=== PATIENT | male | born 1965 | race Caucasian/White ===

== ENCOUNTER 2025-01-03 06:29 | Emergency (ER) | payer OTHER, SELFPAY ==
[2025-01-03 06:32] VITALS: BP 155/81
--- NOTE | 2025-01-03 07:17 | ED.GENMED ---
History of Present Illness
General
Chief Complaint: Dizziness
Source: patient
Exam Limitations: none
Time Seen by Provider: 01/03/25 07:05
History of Present Illness
History of Present Illness:
59yoM with no significant past medical history presenting for evaluation of dizziness. Symptoms initially began last night around 11 PM. He was sitting on the couch and he stood up and started to feel dizzy. He thought he may have stood up too
quickly. He describes the dizziness as feeling like the room is spinning. He went to bed and woke up again with the symptoms. Symptoms have been intermittent throughout the morning and worsened while in the shower. His symptoms are currently
mild. He has been sick for about a week with nasal congestion and cough. He also reports some left discomfort which he believes is related to reflux. Symptoms have been intermittent for at least several weeks and tend to occur while he is lifting
his left arm while at work (patient works as a weapons mechanic). He denies any headache, visual changes, weakness, ear pain, tinnitus, hearing loss.
Past History
Past History
ED Past Medical History: GERD and Other (Kidney stones)
ED Past Surgical History: Orthopedic (Dr. Ibanez-arthroscopic surgery unsure which knee) and Urological (Right renal stent)
Social History
Tobacco: Former smoker (Quit approximately 15 years ago.)
Alcohol: None
Personal: Single
Living: with family
Employment: Employed (works in [employer]
Family History
Family History: Other (Noncontributory)
Phy Exam
General Physical Exam
General Presentation: well appearing and no apparent distress
General Skin: warm and dry
General Habitus: normal
General Mental: alert
ENT Exam
ENT Exam: TM's normal and normocephalic
Additional ENT: +Nasal congestion
Eye Exam
Eye Exam: PERRL, EOMI and conjunctiva normal
Cardiovascular Exam
Cardiovascular Exam: regular rate/rhythm
Pulmonary Exam
Pulmonary Exam: lungs clear, no respiratory distress, no rales, no crackles, no rhonchi and no wheezing
Neurological Exam
Neurological Exam: alert, speech normal and other (Normal finger to nose and heel to kulkarni bilaterally. Ambulating with steady gait. )
Esvin Coma Scale
Eye Opening: Spontaneous
Verbal Response: Oriented
Motor Response: Obeys Commands
GCS Total Score: 15
Skin Exam
Skin Exam: normal color and warm/dry
Psychiatric Exam
Psychiatric Exam: normal mood/affect
Course
Orders/Labs/Results
Orders:
Orders
01/03/25 07:17
Electrocardiogram (*1) Urgent
Reason for Study: Vertigo / Dizzy
CT Head W/o Iv Contrast Urgent
Comment:
Reason For Exam: dizziness
Cardiac Monitoring- Treatment ONCE
EKG- Treatment ONCE
01/03/25 07:48
Pt Eval And Treat Urgent
Treatment: vestibular eval
Activity Level: Out of Bed- Ad Ann-Marie
01/03/25 07:56
COVID-19 Antigen Urgent
Source: Nasal Swab
Complete Blood Count/With Diff Urgent
Comprehensive Metabolic Panel Urgent
Troponin I Urgent
Influenza A+B Rapid Molecular Urgent
[facility] Source: Nasal Swab
Specimen Description:
Abnormal Lab Results
01/03/25
07:56
Absolute Monos (auto) 0.7 H 10^3/uL
(0.1-0.6)
Lymphocytes % 18.0 L %
(20.5-51.1)
BUN 21 H mg/dl
(9-20)
Glucose 138 H mg/dl
(70-99)
01/03/25 07:56
01/03/25 07:56
Vital Signs
Initial and Last Documented VS:
Initial Vital Signs
Temp Pulse Resp BP Pulse Ox
97.9 F 76 16 155/81 96
01/03/25 06:32 01/03/25 06:32 01/03/25 06:32 01/03/25 06:32 01/03/25 06:32
Last Documented Vital Signs
Temp Pulse Resp BP Pulse Ox
97.9 F 68 12 119/80 95
01/03/25 06:32 01/03/25 09:15 01/03/25 09:15 01/03/25 09:09 01/03/25 09:09
MDM/Problems Addressed
Differential Diagnosis Includes:
59yoM here with dizziness. Started last night and intermittent since then. Described as room spinning. Has been sick with URI symptoms x 1 week. Symptoms mild on initial assessment. He was able to ambulate independently into exam room. He is well
appearing in no distress. No nystagmus or ataxia noted on exam. Differential diagnosis includes: BPPV, vestibular neuritis, sinusitis, doubt CVA
Initial ED plan: Check cardiac labs, EKG, viral testing, and CT head. Will consult PT for vestibular evaluation.
*Pulse Oximetry
SaO2: 96
Patient hypoxic: no
*EKG
Interpreted by ED Provider?: Yes
EKG Intrepretation Date: 01/03/25
Heart Rate: 67
Rate: normal
Rhythm: sinus
[place]: normal axis
Interval: normal interval
QRS Pattern: normal QRS
Ischemia: no ischemia
*Critical Care Note
Total Time (30-74mins, 75-104mins- exclusive of procedures): Not Applicable
Update Note
Update Note:
Labs unremarkable. EKG shows NSR without ischemic changes and troponin undetectable. Viral testing negative. CT head negative for acute findings. Patient evaluated by PT and all vestibular testing negative. He is asymptomatic on reassessment.
Suspect symptoms may be 2/2 sinusitis. He was started on a course of Augmentin and supportive care discussed including Flonase/Sudafed. Prescription also given for meclizine. Advised f/u with PCP and ED return precautions reviewed. Patient in
agreement with plan and was discharged in stable condition.
ED Attending Note
-
Portions of this chart may have been created with voice recognition software.� Occasional wrong word or��sound alike� substitutions may have occurred due to the inherent limitations of voice recognition software.
Discharge Plan
Departure
Patient Disposition: Home (Routine Discharge)
Date of Disposition: 01/03/25
Time of Disposition: 09:38
Patient with high blood pressure during this ER visit?: No
Discharge Problem:
Sinusitis, Vertigo
Instructions: Vertigo (a Type of Dizziness) (DC)
Prescriptions:
New
amoxicillin-pot clavulanate 875-125 mg tablet
1 tab PO BID Qty: 14 0RF
meclizine 25 mg tablet
25 mg PO TID PRN (Reason: dizziness) Qty: 20 0RF
No Action
Cipro
1 tab PO Q12
ciprofloxacin HCl 500 MG tablet
500 mg PO BID Qty: 10 0RF
tamsulosin 0.4 MG capsule
0.4 mg PO DAILY Qty: 7 0RF
ketorolac 10 MG tablet
10 mg PO Q6HPRN PRN (Reason: pain) Qty: 7 0RF
diazepam 5 MG tablet
5 mg PO BID PRN (Reason: severe pain) Qty: 10 0RF
ascorbic acid (vitamin C) [Vitamin C] 500 MG tablet
1,000 mg PO BID Qty: 56 0RF
Rx Instructions:
Take 1,000 mg twice a day for 14 days
aspirin 81 MG tablet,chewable
81 mg PO DAILY Qty: 14 0RF
Rx Instructions:
Take 81 mg daily for 14 days
zinc sulfate 220 MG capsule
220 mg PO DAILY Qty: 14 0RF
Rx Instructions:
Take 220 mg daily for 14 days
cholecalciferol (vitamin D3) 1,000 UNITS tablet
2,000 units PO DAILY Qty: 28 0RF
Rx Instructions:
Take 2,000 units daily for 14 days
Referrals:
[facility] [Provider Group]
Ankit Jay MD [Family Provider, [facility]]
Activity Restrictions/Additional Instructions:
Take antibiotics as prescribed. Use Flonase nasal spray and Sudafed for your congestion. Take meclizine as needed for dizziness.
Please follow-up with your family doctor. Return to the ER with any new or worsening symptoms.
Interventions
Interventions:
*Risk Screen - Suicide Last Done: 01/03/25 06:35
*General Assessment Last Done: 01/03/25 06:36
*Neglect/Abuse Screening Last Done: 01/03/25 06:35
*ED- Fall Risk Assessment Last Done: 01/03/25 06:35
*ED COVID-19 Vaccine History Last Done: 01/03/25 06:35
*ED Influenza Vaccine History Last Done: 01/03/25 06:35
ED- Neurological Assessment Last Done: 01/03/25 08:08
ED- Cardiac Assessment Last Done: 01/03/25 08:08
Discharge Date and Time
Print Language: ZAMBIAN
[2025-01-03 08:09] LABS: Hematocrit 43.4 % (39.0-52.0); Hemoglobin 15.0 g/dL (13.0-18.0); Mean Corp Hgb Conc. 34.6 g/dL (33.0-37.0); Mean Corpuscular Volume 87.9 fL (80.0-94.0); Nucleated Red Blood Cells % 0 % (-); Platelet Count 281 10^3/uL (130-400); Red Cell Dist. Width 12.3 % (11.5-14.5)
[2025-01-03 08:13] VITALS: BMI 33.4
[2025-01-03 08:19] LABS: COVID-19 Antigen Negative (Negative)
[2025-01-03 08:23] LABS: ALT (SGPT) 35 U/L (0-50); AST (SGOT) 26 U/L (17-59); Albumin 4.2 g/dl (3.5-5.0); Alkaline Phosphatase 71 U/L (38-126); Blood Urea Nitrogen 21 mg/dl (9-20); Calcium 9.0 mg/dl (8.4-10.2); Carbon Dioxide 26 mmol/L (22-30); Chloride 105 mmol/L (98-107); Estimated Creatinine Clearance > 125 ml/min; Glucose 138 mg/dl (70-99); Potassium 4.0 mmol/L (3.5-5.1); Sodium 138 mmol/L (135-145); Total Protein 7.0 g/dl (6.3-8.2); eGFR > 60.00
[2025-01-03 08:30] LABS: Troponin I < 0.012 ng/ml
[2025-01-03 09:00] VITALS: BP 119/80; PULSE 61; O2SAT 98
[2025-01-03 09:09] VITALS: BP 119/80
== END 2025-01-03 10:31 | disposition home or self-care (01) ==
LOC: EMR 06:29
PROVIDERS: Physician Assistant; EMERGENCY PHYSICIAN Emergency Medicine; FAMILY PHYSICIAN Family Medicine
DX: J32.9 Chronic sinusitis, unspecified (principal); R42 Dizziness and giddiness; K21.9 Gastro-esophageal reflux disease without esophagitis; Z87.891 Personal history of nicotine dependence
CPT/HCPCS: 99284; 70450; 80053; 84484; 85025; 87502; 87811; 93005